=== PATIENT | female | born 1925 | race Caucasian/White ===

== ENCOUNTER 2017-03-17 18:39 | Emergency (ER) | payer MEDICARE, OTHER ==
[~2017-03-17] VITALS: Ht 167.6 cm; Wt 83.0 kg
[~2017-03-17 18:39] MED LIST: HYDR-2768 PO; LUTE1CAP5 PO; MULT1TAB99 PO; PRIN10TA PO; TRAM50 PO; XALA0.00 EACH EYE; ZINCLOZ8 SUCK-ON; ZOLP5TAB3 PO
[2017-03-17 18:46] VITALS: BP 161/89; PULSE 86; RESP 18; TEMP 98; O2SAT 99
[2017-03-17] MEDS ORDERED: LUTEIN (19:34)
[2017-03-17] MEDS ORDERED: ZOLP5TAB3 PO (19:34)
[2017-03-17] MEDS ORDERED: LISI10TA3 PO (19:34)
[2017-03-17] MEDS ORDERED: HYDR12.57 PO (19:34)
[2017-03-17] MEDS ORDERED: MULT-236 (19:34)
[2017-03-17] MEDS ORDERED: LATA0.002 EACH EYE (19:34)
[2017-03-17] MEDS ORDERED: BILBERRY (19:34)
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
[2017-03-17] MEDS ORDERED: ACETAMINOPHEN 325 MG TAB PO ONE (21:15)
--- NOTE | 2017-03-17 21:52 | RADRPT ---
EXAM DATE/TIME: 03/17/2017 20:28 [facility] COMPARISON: No previous studies available for comparison. INDICATIONS : fell into cabinets three days ago and hit rib area under breast. MEDICAL HISTORY : None. SURGICAL HISTORY : None. ENCOUNTER: Initial ACUITY: 3 days PAIN SCORE: 6/10 LOCATION: Right Ribs. FINDINGS: Multiple views of the right ribs were performed. There appear to be minimally displaced fractures thr ough the anterolateral aspect of ribs #4 and 5 on the right. No pneumothorax. Surgical clips in the r ight upper abdominal quadrant are characteristic of prior cholecystectomy. CONCLUSION: Minimally displaced fractures of the anterolateral aspect of ribs #4 and 5 on the right. Talon Steve MD on March 17, 2017 at 21:47 Board Certified Radiologist. This report was verified electronically.
[2017-03-17] MEDS ORDERED: PERC5TAB12 PO (22:13)
[2017-03-17] MEDS ORDERED: ZOFR4TAB3 SL (22:13)
[2017-03-17 22:40] VITALS: RESP 16
== END 2017-03-17 22:50 | disposition home or self-care (01) ==
LOC: PHEFT 18:39
DX: S22.41XA Multiple fractures of ribs, right side, initial encounter for closed fracture (principal); R42 Dizziness and giddiness; I05.0 Rheumatic mitral stenosis; M79.7 Fibromyalgia; I10 Essential (primary) hypertension; H40.9 Unspecified glaucoma; W08.XXXA Fall from other furniture, initial encounter; Y93.01 Activity, walking, marching and hiking; Y92.003 Bedroom of unspecified non-institutional (private) residence as the place of occurrence of the external cause; Y99.8 Other external cause status
CPT/HCPCS: 71101; 99284